=== PATIENT | female | born 1970 | race Caucasian/White ===

== ENCOUNTER → 2018-04-24 10:03 | Outpatient (CLI) | payer BC, SELFPAY ==
[2018-04-27 08:21] LABS: HPV HC, High Risk Negative (Negative)
== END ==
PROVIDERS: Visit Provider Obstetrics & Gynecology
DX: Z12.4 Encounter for screening for malignant neoplasm of cervix (principal)
CPT/HCPCS: 87624; 88175; G0145

== ENCOUNTER 2019-06-06 01:23 | Observation (INO) | payer BC, SELFPAY ==
[2019-06-06] VITALS (15 sets, daily range): BP systolic 114–132; BP diastolic 53–98; PULSE 67–88; RESP 14–18; TEMP 36.5–37.6; O2SAT 94–100; BMI 34.4; BMI 34.3
--- NOTE | 2019-06-06 | GALL_PTH ---
PATIENT: SONAL ELDRIDGE LOC: [facility] U#:[id number] AGE/SX: 48/F ROOM: [facility] RE06/06/[address]: Dr. Debbie Dubois MD : [id number] BED: 1 DIS: 06/07/2019 SPEC #: [id number] RECD: 06/06/19 15:17 STATUS: PINA JUANJO #: [id number] KAYLIE: 06/06/19 00:[address]: Debbie Dubois DEPT: SURGICAL PATHOLOGY RECD BY: Oren Falcon Tissues: Gallbladder, NOS Procedures: Surgery Specimen Level III HEADER OPERATION: Laparoscopic cholecystectomy with IOC PRE-OP DIAGNOSIS: Acute calculus cholecystitis, mildly elevated AST ALT TISSUE SUBMITTED: Gallbladder MICROSCOPIC DIAGNOSIS Gallbladder, cholecystectomy: Cholesterolosis, chronic cholecystitis and cholelithiasis. AM:ammy 06/10/19 MICROSCOPIC DESCRIPTION Slides are reviewed. GROSS DESCRIPTION Received is one container labeled with the patient's name and designated gallbladder. The specimen consists of a previously opened gallbladder measuring 7 cm in length and up to 4 cm in diameter. The external surface is pink-coello, smooth and glistening for the most part. Focally it is granular, hemorrhagic and contains cautery artifact. The gallbladder contains a small amount of green-yellow mucoid bile. Present in the gallbladder are two round, yellow mulberry stones measuring 1.2 and 1.5 cm in diameter. The mucosa is bile-stained and without any mass lesions. The gallbladder wall measures up to 0.2 cm in thickness. The mucosa also shows several yellowish streaks consistent with cholesterolosis. Oven Roaster sections from the gallbladder and the cystic duct are submitted in one cassette. / SJ:ammy 06/07/19 TC:3 CPT: 42076
[2019-06-06] MEDS: Morphine 4 MG/ML Syringe IV ×3 (02:31→06:54)
[2019-06-06] MEDS: Ondansetron 4 MG/2 ML Vial IV (02:31)
[2019-06-06] MEDS: 0.9% Normal Saline 1,000 ML 1000 ML IV (02:31)
--- NOTE | 2019-06-06 02:36 | ED.DCSUM_ITS ---
- ER Visit Summary Date of Service: 06/06/19 Chief Complaint: Abdominal pain History of Present Illness: The patient is a [address] Mandujano. She reports that she has upper abdominal pain that began 8:00 this evening. It is a sharp, cramping pain Zeta 10 severity currently and at worst. Is worsened by nothing relieved by nothing. She taken antacids without relief. She reports that this began approximately an hour and a half after eating ham, tater tots, and carrots. She is never had anything like this before. She denies any history of fatty or spicy food intolerance. Patient reports has been nauseated and vomited 6 times. No blood or emesis. No diarrhea. Her last bowel was yesterday. No hematochezia. No dysuria frequency. Physical Examination: Vitals: Stable. Afebrile. General: Well-nourished and well-developed. Head: Normocephalic atraumatic. Neck: Supple, no lymphadenopathy. No JVD. Nontender. Cardiovascular: Regular rate and rhythm. No murmurs. Respiratory: No respiratory distress. Clear to auscultation bilaterally. Abdominal: Soft, moderate epigastric and right upper quadrant tenderness with mild left upper quadrant tenderness, nondistended, normal bowel sounds. No guarding, rebound, or peritoneal signs. Back: Nontender. Extremities: Nontender, no edema. Skin: Normal color, no rash. Neurologic: Alert and oriented ?3. Cranial nerves II through XII are intact. Normal strength and sensation. Psych: Normal affect. Test Results: CBC shows a white count of 13.5 with segment neutrophils 81 lymphocytes 13. Chem-7 shows a glucose 125. LFTs marked for direct bili of 0.37, ALT of 59, AST of 84. Lipase is 118. Emergency Department Course and Treatment: Patient had an IV placed. She was given liter normal saline. She was given morphine and Zofran IV. She is resting more comfortably. I discussed her the need for an ultrasound to check for gallstones and to rule out cholecystitis. I did offer to do a CT, but she did not want to do this prior to the ultrasound. Treatment Plan: Patient will be checked out to the oncoming physician with ultrasound pending. If this does not show cholecystitis she will be discharged with Percocet and Zofran. She would like to follow-up with Dr. Leo. She is instructed to contact him to be seen as soon as possible. Return to the emergency department for any worsening symptoms. Disposition: To home in improved and stable condition. Impression: 1. Upper abdominal pain. This note was generated with [employer] dictation software. It may contain incorrect words, spelling, and punctuation that were not noted in review of the chart prior to signing ED Disposition - Plan for ED Patient: Instructions: ED Gallstones with Biliary Colic Prescriptions: Oxycodone HCl/Acetaminophen [Percocet 5/325] 1 tablet PO Q6H PRN PRN 3 Days #12 tablet PRN Reason: Pain Ondansetron [Zofran Odt] 4 mg PO Q8H PRN PRN #10 tablet PRN Reason: Nausea Referrals: Oj Leo MD [STAFF PHYSICIAN] - As soon as possible
[2019-06-06 02:42] LABS: Absolute Lymphocyte Count 1.68 X10^3/uL (0.83-4.51); Absolute Neutrophil Count 10.9 X10^3/uL (2.0-7.7); Basophil# 0.03 X10^3/uL; Basophil% 0.2 % (0-1); Eosinophil# 0.07 X10^3/uL; Eosinophils% 0.5 % (0-5); Hematocrit 41.5 % (37-47); Hemoglobin 13.6 g/dL (12.0-15.0); Lymphocyte # 1.68 X10^3/ul (4.0); Lymphocyte % 12.5 % (19-41); Mean Corp Hgb Conc 32.8 g/dL (32-36); Mean Corpuscular Hgb 28.2 pg (27.0-32.0); Mean Corpuscular Volume 86.1 fL (81-99); Mean Platelet Vol. 10.3 fl (6.2-12.0); Monocyte# 0.75 X10^3/uL; Monocyte% 5.6 % (0-10); NRBC Flagged by Analyzer 0 % (0-5); Neutrophil # 10.89 X10^3/uL (2.7-7.7); Neutrophil % 80.7 % (47-70); Platelet Count 234 K/mm3 (150-450); RBC Distribution Width SD 43.9 fl (35.1-43.9); Red Blood Count 4.82 M/mm3 (4.2-5.4); White Blood Count 13.5 K/mm3 (4.4-11.0)
[2019-06-06 03:16] LABS: AST(SGOT) 84 U/L (15-37); Alanine Aminotransfer ALT/SGPT 59 U/L (13-56); Alkaline Phosphatase 81 U/L (45-117); Anion Gap 9 (5-15); BUN 14 mg/dL (7-18); BUN/Creat Ratio 13.7 RATIO (10-20); Bilirubin, Direct 0.37 mg/dL (0.00-0.30); Calcium,Total 9.4 mg/dL (8.5-10.1); Chloride 104 mmol/L (98-107); Creatinine, Serum 1.02 mg/dL (0.55-1.02); EST Glomerular Filtration Rate 61 mL/min (>60); Est Glom Filt Rate - Afr Amer 74 mL/min (>60); Estimated Creatinine Clearance 72.15 ml/min; Globulin 3.7 g/dL (2.2-4.2); Glucose 125 mg/dL (74-106); Lipase 118 U/L (73-393); Potassium 3.8 mmol/L (3.5-5.1); Protein, Total 7.7 g/dL (6.4-8.2); Sodium Level 140 mmol/L (136-145)
--- NOTE | 2019-06-06 05:54 | US_ITS ---
STUDY: ABDOMINAL ULTRASOUND - RIGHT UPPER QUADRANT REASON FOR VISIT: Female, 48 years old abd pain TECHNIQUE: Ultrasound evaluation of the right upper quadrant was performed with real-time and static doll-scale imaging. TECHNICAL QUALITY: Adequate. COMPARISON: None. FINDINGS: Liver: The liver measures 15.4 cm. There is increased echogenicity consistent with fatty infiltration. The bile ducts are within normal limits. There is hepatic color flow. The direction of portal flow is hepatopetal. There is no demonstrated mass lesion. Gallbladder: Normal distended gallbladder. The gallbladder wall measures 2 mm. There is a negative sonographic Salas''s sign. There is no pericholecystic fluid. There are multiple echogenic structures within the gallbladder, consistent with multiple gallstones. Common Bile Duct (C.B.D.): The common bile duct measures 7 mm. Pancreas: Normal size of the head, body and tail of the pancreas. There is normal echogenicity of the pancreas. There is no demonstrated pancreatic mass or cyst. Right Kidney: Normal size of the right kidney. The right kidney measures 12.3 cm. Normal renal cortex. The right cortex measures 1.7 cm. There is no demonstrated renal mass or cyst. There is no right hydronephrosis. US/Gallbladder IMPRESSION: 1. Cholelithiasis. 2. Mild extrahepatic biliary ductal dilatation and choledocholithiasis cannot be excluded. Correlation with MRCP or ERCP is recommended. 3. Fatty infiltration of the liver. Electronically Signed: Enzo Edmondson MD at 8:07 EDT Tel , Service support ,
--- NOTE | 2019-06-06 09:12 | ED.DEP ---
ED Disposition - Plan for ED Patient: Instructions: ED Gallstones with Biliary Colic Referrals: Oj Leo MD [STAFF PHYSICIAN] - As soon as possible
--- NOTE | 2019-06-06 09:39 | HP.PCM_ITS ---
History of Present Illness Date of Admission: 06/06/19 The patient is a 48 year old F presented to the ER last night due to abdominal pain/epigastric pain. Patient states that started after dinner she had nausea and vomiting and the pain did get worse. Patient denies having previous episodes initially however after talking much states she did have some right upper quadrant pain last week where she had to heat treat puller from driving and was nauseous but that did improve. Patient's white blood count was 13.5 on admit, ALT and AST mildly elevated, normal total bili and alk phos, ultrasound the gallbladder showed multiple gallstones, gallbladder wall report states 2 mm measured about 3 mm myself, common bile duct 6.5 mL. Currently patient still has some right upper quadrant/right-sided tenderness, nausea controlled with medication. Past Medical History Medical History: Medical History (Last Updated 06/06/19 @ 09:[address] Debbie Dubois MD) Invasive ductal carcinoma of right breast (Resolved) C50.911 Depression F32.9 Subareolar mass of right breast N63.41 Allergies No Known Allergies Allergy (Verified 06/06/19 01:24) Home Medications: Ambulatory Orders Medication Instructions Recorded Acetaminophen [Tylenol Arthritis] 2 tab PO DAILY 06/06/19 Anastrozole [Arimidex] 1 tab PO DAILY 06/06/19 Calcium 250-D Tablet 400 mg PO BID 06/06/19 Cartilage/Collagen/Bor/Hyalur 1 tab PO BID 06/06/19 [Joint Health Tablet] Citalopram [Celexa] 1 tab PO DAILY 06/06/19 Fluticasone 0.05% [Flonase Nasal 2 sprays IH DAILY 06/06/19 [place]] Prasterone (Dhea) [Intrarosa] 1 tab VAGINAL QHS 06/06/19 Pregabalin [Lyrica] 50 mg PO BID 06/06/19 Surgical History: Surgical History (Last Updated 06/06/19 @ 09:[address] Debbie Dubois MD) Status post chemotherapy (Inactive) Z92.21 Status post endovenous radiofrequency ablation (RFA) of saphenous vein Z98.890 Status post surgical removal of both fallopian tubes Z90.79 Surgical History: - - Right mastectomy with axillary lymph node dissection and Sulma flap reconstruction of right breast with abdominoplasty, reduction/liposuction injections of left breast all done in 2018 at [facility] patient is also status post chemotherapy per patient 1 out of 16 lymph nodes positive. PROGRAM EVALUATOR History: No pertinent PROGRAM EVALUATOR history Smoking Status: Current every day smoker - *Family History Maternal Family History: Family History (Last Updated 02/07/17 @ 13:41 by Mone Wooten) Mother Osteoporosis Father Hypertension History Items: No pertinent history Review of Systems Constitutional: Reports: Anorexia. Denies: Fever HEENT: Denies: Difficulty Swallowing Cardiovascular: Denies: Chest Pain Respiratory: Denies: Cough Gastrointestinal: Reports: Abdominal Pain, Nausea, Vomiting Genitourinary: Denies: Dysuria Musculoskeletal: Reports: Joint Tenderness - Status post chemo Skin: Denies: Rash Hematologic/ Lymphatic: Denies: Easy Bleeding VTE Information - Inpt Only VTE Present on Admission: Yes VTE Mechan Device Prophylaxis: SCD's - Physical Exam Vitals/I&O's: Vital Signs Temp Pulse Resp BP Pulse Ox 98.4 F 68 16 115/83 H 97 06/06/19 06:35 06/06/19 08:07 06/06/19 08:07 06/06/19 08:07 06/06/19 08:07 Oxygen Delivery Method Room Air Weight: 240 lb 8.389 oz Body Mass Index (BMI) 34.4 Intake and Output for Last 24 Hours 06/04/19 06/05/19 06/06/19 23:59 23:59 23:59 Intake Total 1000 / 1000 Balance 1000 / 1000 General: Alert, Oriented x3, Cooperative, No apparent distress HEENT: Atraumatic Lungs: Normal air movement Cardiovascular: Regular rate Abdomen: Soft, Non-Distended, Tender - Right upper quadrant/right mid quadrant, no peritoneal signs, - - Lower transverse incision due to abdominoplasty/Sulma flap Extremities: No clubbing, No cyanosis, No edema Skin: No rashes Neurological: Cranial nerves II-XII grossly intact Psych/Mental Status: Normal Affect Laboratory Results 06/06/19 02:30: WBC 13.5 H, RBC 4.82, Hgb 13.6, Hct 41.5, MCV 86.1, MCH 28.2, MCHC 32.8, RDW Std Deviation 43.9, RDW Coeff of Radha 14.0, Plt Count 234, MPV 10.3, Immature Gran % (Auto) 0.500, Neut % (Auto) 80.7 H, Lymph % (Auto) 12.5 L, [place] % (Auto) 5.6, Eos % (Auto) 0.5, Baso % (Auto) 0.2, Absolute Neuts (auto) 10.9 H, Absolute Lymphs (auto) 1.68, Nucleated RBC % 0 06/06/19 02:30: Sodium 140, Potassium 3.8, Chloride 104, Carbon Dioxide 27.0, Anion Gap 9, BUN 14, Creatinine 1.02, Estim Creat Clear Calc 72.15, Est GFR (MDRD) Af Amer 74, Est GFR (MDRD) Non-Af 61, BUN/Creatinine Ratio 13.7, Glucose 125 H, Calcium 9.4, Total Bilirubin 0.80, Direct Bilirubin 0.37 H, AST 84 H, ALT 59 H, Alkaline Phosphatase 81, Total Protein 7.7, Albumin 4.0, Globulin 3.7, Lipase 118 Assessment/Plan 48-year-old female with acute calculus cholecystitis, mildly elevated AST ALT Reviewed the anatomy with the patient and discussed the procedure: laparoscopic cholecystectomy with possible cholangiograms, possible open. Review risks including but not limited to bleeding, infection, hernia, bile leak, retained gallstones requiring another procedure ERCP- Endoscopic Retrograde Cholangiopancreatography, injury to another organ (bile ducts, common bile duct, small bowel, etc.) may require transfer to tertiary care facility and conversion to an open procedure. All questions were answered. Patient was agreeable to proceed scheduled for about 2 PM today. Debbie Dubois M.D. Pager: [phone] [facility] [address] [place] [address], [address] [place] [address] Office: [phone]
[2019-06-06] MEDS: Lactated Ringers 1,000 ML 125 ML IV ×2 (10:46→17:02)
--- NOTE | 2019-06-06 13:13 | EKG12_ITS ---
Test Reason : PRE-OP Blood Pressure : / mmHG Vent. Rate : 067 BPM Atrial Rate : 067 BPM P-R Int : 164 ms QRS Dur : 088 ms QT Int : 408 ms P-R-T Axes : 043 -13 024 degrees QTc Int : 431 ms Normal sinus rhythm Low voltage QRS Borderline ECG No previous ECGs available Confirmed by YODIT CRONIN, SHANTI ([id number]), video effects editor [place] ([id number]) on 06/10/2019 11:12:24 AM Referred By: JORGE L Confirmed By:SHANTI MONSIVAIS MD
--- NOTE | 2019-06-06 14:15 | RAD_ITS ---
CLINICAL HISTORY: Female, 48 years old. Abdominal pain PROCEDURE: CHOLANGIOGRAM - intraoperative FLUOROSCOPY TIME (if supplied): (17.6 seconds) minutes/seconds TECHNIQUE: (All elements of maximal sterile barrier technique followed, including US elements as applicable) 17.6 seconds of fluoroscopy of the abdomen was utilized and operating room during an intraoperative cholangiogram and 2 images made of for interpretation. FINDINGS: A cannula seen in the cystic duct remnant. There is prompt filling of the biliary tree which demonstrates no evidence of filling defect to suggest common bile duct stone. There is spillage of contrast through the ampulla into the duodenum. RAD/Cholangiogram/ O R,Initial IMPRESSION: No common bile duct stone. Electronically Signed: Enzo Edmondson MD at 15:32 EDT Tel , Service support ,
[2019-06-06] MEDS: Bupivacaine Mpf 0.5% 30 ML VIAL (14:26)
--- NOTE | 2019-06-06 15:17 | PCM.OPRPT ---
Report of Operation Date of Procedure: 06/06/19 Pre-Operative Diagnosis: Acute calculus cholecystitis Post-Operative Diagnosis: Same Surgery/Procedure Performed:: Laparoscopic cholecystectomy with cholangiograms exceptional children teacher assistant: Delilah Nazario Type of Anesthesia:: General/Supplemental Anesthesiologist: Julian Herrmann Special Medications: Zosyn IV given in ER for acute cholecystitis Specimen's removed: Gallbladder and stones Estimated Blood Loss (mL): < 10 cc Fluids Replaced: 1000 cc Description of Procedure: Indications this is a 48 year-old female who developed abdominal pain/nausea/vomiting and on workup was found to have cholelithiasis, with a normal common bile duct. Laparoscopic cholecystectomy was elected. Description procedure: The patient was placed on operating table in supine position. General Anesthesia was induced. A timeout was completed verifying correct patient, procedure, site, position and special equipment prior to beginning procedure. The abdomen was prepped and draped in usual sterile fashion. An incision was made in the natural skin line above the umbilicus. The fascia was elevated and incised. The peritoneum was elevated and incised. Entry into the peritoneum was confirmed visually and no bowel was noted in the vicinity of the incision. Tran trocar was placed. The abdomen was insufflated with carbon dioxide to a pressure of 12-15 mmHg. Patient tolerated insufflation well. The laparoscope was then inserted and abdomen inspected. No injuries from initial trocar placement were noted. Additional trochars were then inserted in the following locations 5 mm trocar in the epigastrium and 2 more 5 mm trochars along the right costal margin. The abdomen was inspected no abnormalities were found. The table is placed in reverse Trendelenburg position with the right side up. The adhesions between the gallbladder and omentum were lysed sharply. The dome of the gallbladder was grasped with atraumatic grasper passed through the lateral port and retracted over the dome of the liver. Infundibulum was then grasped with atraumatic grasper through the midclavicular port and retracted to the right lower quadrant. The neck of the gallbladder is noted to be inflamed with adhesions. This maneuver exposed Calot's triangle. The peritoneum overlying the gallbladder infundibulum was then incised and cystic duct and artery identified and circumferentially dissected. Elias catheter was used for cholangiograms. The cholangiogram showed good filling of the common bile duct into the duodenum with no filling defects, good filling of the right and left bile ducts as well. The cystic duct and artery were then doubly clipped and divided close to the gallbladder. The gallbladder then dissected from its peritoneal attachments by electrocautery. Hemostasis was checked and the gallbladder and contained stones were removed using the endoscopic retrieval bag through the umbilical port. The gallbladder is passed off table as specimen. The gallbladder fossa was copiously irrigated with saline and hemostasis obtained. There is no evidence of bleeding from the gallbladder fossa or cystic artery leakage of bile from the cystic duct stump. Secondary trochars removed under direct vision. No bleeding was noted the trocar sites. The laparoscope was withdrawn and umbilical trocar removed. The abdomen was allowed to collapse using the smoke evacuation filter. The fascia of the 12 mm trocar was closed with a [id number] 0 Vicryl suture. The skin was closed with sutures of 4-0 Monocryl and Steri-Strips. The orogastric tube was removed and the patient was extubated. The patient tolerated procedure well and was taken to the postanesthesia care unit in stable condition. - Complications none
[2019-06-06] MEDS: HYDROmorphone 0.5 MG/0.5 ML SYRINGE IV (18:46)
--- NOTE | 2019-06-06 19:17 | PCM.DC.GB ---
Discharge Diet: Light diet - advance as tolerated Discharge Activity: May not drive while taking narcotic pain medications. May shower in (days): 1 - 24 hr from surgery Lifting Restrictions: no lifting > 20 lb x 2 weeks Call your doctor if your incision/area has: Continuous Slow Oozing, Sudden Increased Bleeding, Increased Pain/ Swelling, Increased Redness, Foul Smelling Discharge, Swelling at the incision site Call your doctor if you observe: Fever of 101 or Higher Additional Instructions: Okay to take ibuprofen 400-600 mg PO q6hr PRN along with the Percocet. Avoid Tylenol since there is already Tylenol in the Percocet. Take all pain meds with food. Percocet can cause constipation recommend taking daily stool softener (i.e. Colace/docusate) while taking the pain meds. Recommend starting some MiraLAX 1 to 2 days if no bowel movement. If still no bowel movement following day recommend taking magnesium citrate half the bottle and waiting 4-6 hours if still no results take the other half the bottle. Allergies/Adverse Reactions: Allergies No Known Allergies Allergy (Verified 06/06/19 01:24) Medications to take at Discharge Acetaminophen [Tylenol Arthritis] 2 tab PO DAILY 06/06/19 Anastrozole [Arimidex] 1 tab PO DAILY 06/06/19 Calcium 250-D Tablet 400 mg PO BID 06/06/19 Cartilage/Collagen/Bor/Hyalur [Joint Health Tablet] 1 tab PO BID 06/06/19 Citalopram [Celexa] 1 tab PO DINNER 06/06/19 Fluticasone 0.05% [Flonase Nasal [place]] 2 sprays IH DAILY 06/06/19 Oxycodone HCl/Acetaminophen [Percocet 5/325] 1 - 2 tab PO Q6H PRN PRN 5 Days #25 tab 06/06/19 Prasterone (Dhea) [Intrarosa] 1 tab VAGINAL QHS 06/06/19 Pregabalin [Lyrica] 50 mg PO BID 06/06/19 The following prescriptions were given: Oxycodone HCl/Acetaminophen [Percocet 5/325] 1 - 2 tab PO Q6H PRN PRN 5 Days #25 tab PRN Reason: Pain Transmission Status: Received by [facility]/pharmacy #[id number] Test Results: Test results from this visit will be discussed in further detail at your follow-up appointment, if applicable. Please Follow Up With: Debbie Dubois MD - after 5pm/weekends call [phone] When: call the office for a phone appt in 2 weeks Proposed Discharge Date: 06/07/19
[2019-06-06] MEDS: oxyCODONE 5 MG Tablet PO (20:55)
[2019-06-06] MEDS: Pregabalin 50 MG Capsule PO (21:02)
[2019-06-06] MEDS: Citalopram 20 MG Tablet PO (21:02)
[2019-06-07 03:08] VITALS: BP 117/73; PULSE 65; RESP 16; TEMP 37; O2SAT 96
[2019-06-07] MEDS: oxyCODONE 5 MG Tablet PO ×2 (07:38→12:44)
--- NOTE | 2019-06-07 08:54 | PN.SURG_ITS ---
Subjective: Patient tolerating diet ambulating pain controlled - Physical Exam Vitals/I&O's: Vital Signs Temp Pulse Resp BP Pulse Ox 98.6 F 65 16 117/73 96 06/07/19 03:08 06/07/19 03:08 06/07/19 03:08 06/07/19 03:08 06/07/19 03:08 Oxygen Flow Rate (L/min) 1.5 Oxygen Delivery Method Room Air Weight: 239 lb 3.225 oz Body Mass Index (BMI) 34.3 Intake and Output for Last 24 Hours 06/05/19 06/06/19 06/07/19 23:59 23:59 23:59 Intake Total 1881.25 / 2721.25 2380 / 2380 Output Total 200 / 1000 1200 / 1200 Balance 1681.25 / 1721.25 1180 / 1180 General: Alert, Oriented x3, Cooperative, No apparent distress HEENT: Atraumatic Lungs: Normal air movement Cardiovascular: Regular rate Abdomen: Soft, Distended - Mild, Tender - Near incisions clean dry and intact no peritoneal signs Extremities: No clubbing, No cyanosis, No edema Neurological: Cranial nerves II-XII grossly intact Psych/Mental Status: Normal Affect Current Medications Acetaminophen (Tylenol) 650 mg PO Q6H PRN PRN PRN Reason: Pain 1-10 Anastrozole (Arimidex) 1 mg PO DAILY [facility] Citalopram Hydrobromide (Celexa) 20 mg PO DINNER [facility] Last Admin: 06/06/19 21:02 Dose: 20 mg Documented by: Hydromorphone HCl (Dilaudid Inj) 0.5 mg IV Q2H PRN PRN PRN Reason: Pain Score 1-1010 Last Admin: 06/06/19 18:46 Dose: 0.5 mg Documented by: Lactated Ringer's () 1,000 mls @ 125 mls/hr IV .Q8H [facility] Last Admin: 06/07/19 03:10 Dose: Not Given Documented by: Sodium Chloride () 250 mls @ 15 mls/hr IV .[id number] PRN PRN Reason: Saline Flush Ondansetron HCl (Zofran) 4 mg IV Q8H PRN PRN PRN Reason: NAUSEA Oxycodone HCl (Oxyir) 5 - 10 mg PO Q4H PRN PRN PRN Reason: Pain Score 6-10/10 Last Admin: 06/07/19 07:38 Dose: 5 mg Documented by: Pregabalin (Lyrica) 50 mg PO BID EVELINE Last Admin: 06/06/19 21:02 Dose: 50 mg Documented by: Sodium Chloride () 10 - 40 ml IV UD PRN PRN Reason: SALINE FLUSH Medical Necessity - Tobacco Use Smoking Status: Current every day smoker Tobacco Use: Cigarettes Assessment/Plan All Active Problems (Last Updated 06/06/19 @ 09:[address] Debbie Dubois MD) Invasive ductal carcinoma of right breast (Resolved) 48-year-old female with acute calculus cholecystitis, postop day 1 status post laparoscopic cholecystectomy Patient is tolerating diet, ambulating, pain controlled, vital signs stable okay for discharge. Debbie Dubois M.D. Pager: [phone] [facility] [address] [place] [address], [facility], [address] [place] [address] Office: [phone]
[2019-06-07 09:44] LABS: Bacteria 0 SEEN /hpf (None Seen); Mucous, Urine 0 SEEN /hpf (<or=2+); Red Blood Cells-Urine 0 SEEN /hpf (0-5)
[2019-06-07 09:53] LABS: Color, Urine Yellow (Yellow); Glucose, Dipstick Normal (Normal); Ketone-Dipstick Negative (Negative); Leukocyte Esterase-Dipstick 25 /ul (Negative); Nitrite-Dipstick Negative (Negative); Occult Blood-Urine Negative /ul (Negative); Protein-Dipstick Negative (Negative); Urine Bilirubin Dipstick Negative (Negative); Urine Clarity Clear (Clear); Urine Urobilinogen Normal (Normal)
[2019-06-07 10:00] LABS: Squamous Epithelial Cells - UA 0-5 SEEN /hpf (5-10); White Blood Cells 0-5 SEEN /hpf (0-5)
[2019-06-07 10:08] VITALS: BP 112/71; PULSE 79; RESP 16; TEMP 36.8; O2SAT 94
[2019-06-07] MEDS: Pregabalin 50 MG Capsule PO (10:24)
[2019-06-07] MEDS: Anastrozole 1 MG Tablet PO (10:26)
[2019-06-07 13:39] VITALS: BP 125/71; PULSE 84; RESP 16; TEMP 37.3; O2SAT 94
== END 2019-06-07 08:54 | disposition home or self-care (01) ==
LOC: ED 03:20 → PCU 09:18
PROVIDERS: Admitting Provider Surgery; Emergency Provider Emergency Medicine; Visit Provider Surgery
PROC: (CPT 47610; principal; 2019-06-06 13:55)
DX: K80.12 Calculus of gallbladder with acute and chronic cholecystitis without obstruction (principal); F32.9 Major depressive disorder, single episode, unspecified; Z79.899 Other long term (current) drug therapy; Z85.3 Personal history of malignant neoplasm of breast; F17.210 Nicotine dependence, cigarettes, uncomplicated
CPT/HCPCS: 47563; 74300; 76000; 76705; 80048; 80076; 81001; 83690; 85025; 87086; 87088; 88304; 93005; 96361; 96365; 96375; 96376; 99218; 99251; 99285; J7030; J7050; J7120; A4216; G0378; G0463; J2405

== ENCOUNTER 2022-12-02 07:00 | Outpatient (RCR) | payer OTHER, SELFPAY ==
--- NOTE | 2022-10-17 07:54 | HP.PTEVAL ---
Patient's Visit Information Visit Information Visit Information: SONAL ELDRIDGE is a 52 year old F referred to Physical Therapy by Dr. Gagan Strong MD with a diagnosis of dizzyness/giddiness.. Date of Evaluation: 10/17/22 Physical Therapist: Julian Ocampo, DPT, OCS, CSCS Visit Plan Frequency: 1x/Week Duration: 4-6 Weeks Plan: weeklya s needed for 4-6 weeks for monitor need for further positional intervention or other vestibular. Subjective Subjective: March was letting dog out and got very dizzy and lost balance walking back to house and fell into porch. Hit arm on step. Vision went black. Family attended. Lost consciousness in foyer. Woke up with family and arm was OK so stayed home and had PT for arm. Talked to doctor a day or so later and many tests run and sent to neurology. everything has gone back normal including EKG, MRI of brain, EEG of brain, US of carotid artery and US of neck for lymph nodes. Dr. Strong thought maybe drop in blood pressure or vertigo. Blood pressure is good and clinical test showed positional vertigo. Since March has had nothing but a little spinning/lightheadedness now and then. Gets it not daily now and only a couple seconds and movement causes it including changing positions on bed. Sleep is not a problem due to this. Activities: more cautious with movement. Carefull when home by herself. Basic ADLs are all done Hobbies: none. 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 Has not missed work. Water exercise 3x/week Objective Objective: Walks into PT easily adn I, transfers I bed and chair. Steps reciprocal with no rail needed today. cervical aROM WFL and without pain, UE AROM slightly limited L elevation but funcitonal and strength is symmetrical. No numbness to light touch. - B hallpike phyllis - roll test Oculomotor: Unremarkable today. No nystagmus with gaze or head shake - skew eye deviation - ocular tilt - head thrust. DVA within two lines of SVA no problems or symptoms with gaze, pursuit, saccades. VOR normal and asymptomatic. Balance/Special Test Scores Functional Gait Assessment Score: 30 % Disability: 0 Dizziness Score: 34 Goals Goal 1:: 2 weeks without any dizzyness Goal Time Frame: 4-6 Weeks Goal 2:: Pt confident with movements/stairs etc that dizzyness is gone. Goal Time Frame: 4-6 Weeks Rehabilitation Potential Physical Therapy Diagnosis: Intermittent dizzyness unknown etiology, subjective makes appropriate trial of BD ex and monitor. Rehabilitation Potential: Questionable Anticipated Interventions Patient/Client Instruction: Educate patient on: Condition and Plan of Care For the Purpose of:: To increase tolerance to activity/condition/position Comment: vestibular as needed For the Purpose of:: To increase tolerance to activity/condition/position Text: Thank you for the opportunity to evaluate your patient. For Medicare and Medicare HMO plans, please review the plan of care and approve it. It will need to be FAXED BACK to us at [phone] for Medicare purposes. For Medicare only, by signing this I certify the plan of care. Please let me know if there are questions or concerns regarding this plan of care. Physician Signature: Date:
--- NOTE | 2022-12-02 07:42 | HP.PTREVAL ---
Re-Evaluation Intro: Dr. Gagan Strong MD, It has been my pleasure to treat SONAL ELDRIDGE over the last 5 visits for dizzyness/giddiness.. Please see the progress note below for an update on the physical therapy plan of care! Subjective Subjective: Not sure how we did. Doing the BD exercises never gave spinning or eye movements but felt off sitting up, not lying down, for a few seconds R side. Went away quickly. Improving symptoms otherwise. leaning to get off nightstand still not a problem. Activities are pretty normal. To doctor in two weeks, Tae. Objective Objective/Function: - L HD - R HD but slight movement in eyes for 3 seconds. Balance is great today Overall symptoms are much improved but still slight lightheadedness, no spinning or dizzyness if she turns in bed to shut off alarm, mostly good otherwise. Symptoms are mostly subjective at this point when present. Plan Plan Plan: Pt to monitor effects of latest mickey and see doctor in two weeks to get other recommendations. Will continue Oliver appiah in the meantime. Will call after that appointment for d/.c or need to return. Balance/Gait/Functional tests Balance/Special Test Scores Functional Gait Assessment Score: 30 % Disability: 0 Dizziness Score: 26 Goals Goals Goal 1:: 2 weeks without any dizzyness Goal Time Frame: 4-6 Weeks Goal Progress: Progressing Goal 2:: Pt confident with movements/stairs etc that dizzyness is gone. Goal Time Frame: 4-6 Weeks Goal Progress: Progressing Anticipated Interventions Anticipated Interventions Patient/Client Instruction: Educate patient on: Condition and Plan of Care For the Purpose of:: To increase tolerance to activity/condition/position Comment: vestibular as needed For the Purpose of:: To increase tolerance to activity/condition/position Re-Evaluation Ending Re-evaluation ending: Please do not hesitate to contact me at [phone] by phone or if you have questions or concerns regarding this new plan of care! Sincerely, Julian Ocampo, DPT, OCS, CSCS
--- NOTE | 2023-03-09 13:12 | HP.PT.NRP ---
Patient Information Patient Information: SONAL ELDRIDGE was seen in my office for initial evaluation on 10/17/22. The following Plan of Care was established for this patient: POC Established Initial Frequency: 1x/Week Initial Duration: 4-6 Weeks Anticipated Interventions Patient/Client Instruction: Educate patient on: Condition and Plan of Care For the Purpose of:: To increase tolerance to activity/condition/position For the Purpose of:: To increase tolerance to activity/condition/position Last Seen Last Seen: This patient was last seen in our office 12/02/22. Pertinent comments regarding their Physical therapy will appear below: Pt seen 5 visits of POC and was 50% better. Referred back to doctor due to slow improvement and was to call if needed to return after that consult. At this point, it has been over two months and I will discontinue due to nonattendance. At this point I will be discontinuing this patient from physical therapy. I would be happy to see this patient again in the future if found appropriate by the physician. Thank you! Julian Ocampo, DPT, OCS, CSCS Balance/Gait/Functional tests Balance/Special Test Scores Functional Gait Assessment Score: 30 % Disability: 0 Dizziness Score: 26
== END 2022-12-02 19:00 | disposition home or self-care (01) ==
LOC: PT 07:00
PROVIDERS: PCP Student in an Organized Health Care Education/Training Program; Referring Provider Psychiatry & Neurology Neurology; Visit Provider Psychiatry & Neurology Neurology
DX: R42 Dizziness and giddiness (principal)
CPT/HCPCS: 97162; 97530